=== PATIENT | male | born 1980 | race African-American/Black ===

== ENCOUNTER 2020-10-13 09:23 | Emergency (ER) | payer MEDICAID, OTHER ==
[~2020-10-13] VITALS: Ht 182.9 cm; Wt 129.3 kg
[2020-10-13 09:32] VITALS: BP 145/105
[2020-10-13] MEDS ORDERED: KETOROLAC TROMETH 60MG/2ML VIAL IM ONE (11:00)
[2020-10-13] MEDS ORDERED: METHOCARBAMOL 500 MG TAB PO ONE (11:00)
== END 2020-10-13 13:19 | disposition home or self-care (01) ==
LOC: ER 09:23
DX: S16.1XXA Strain of muscle, fascia and tendon at neck level, initial encounter (principal); S39.012A Strain of muscle, fascia and tendon of lower back, initial encounter; M25.512 Pain in left shoulder; Z88.0 Allergy status to penicillin; V43.62XA Car passenger injured in collision with other type car in traffic accident, initial encounter; Y93.89 Activity, other specified; Y92.488 Other paved roadways as the place of occurrence of the external cause; Y99.8 Other external cause status
CPT/HCPCS: 72040; 72070; 72100; 73030; 96372; 99284; J1885